=== PATIENT | male | born 1965 | race Caucasian/White ===

== ENCOUNTER 2021-10-01 17:57 | Inpatient (IN) | payer OTHER, SELFPAY ==
[~2021-10-01] VITALS: Ht 167.6 cm; Wt 85.7 kg
[2021-10-01 17:57] VITALS: BP_SYST 156
[2021-10-01] MEDS ORDERED: NACL 0.9% 1,000 ML IV ONE (19:45)
[2021-10-01 20:02] LABS: BASOPHILS # (AUTO) 0.1 K/uL (0.0-0.2); BASOPHILS % (AUTO) 0.9 % (0.0-2.0); EOSINOPHILS % (AUTO) 0.1 % (0.0-4.0); HEMATOCRIT 36.5 % (36-54); HEMOGLOBIN 12.8 g/dL (14.0-18.0); LYMPHOCYTES # (AUTO) 0.9 K/uL (1.0-5.5); LYMPHOCYTES % (AUTO) 13.9 % (20.5-51.5); MEAN CORPUSCULAR HEMOGLOBIN 33 pg (27-31); MEAN CORPUSCULAR HGB CONC 35 % (32-36); MEAN CORPUSCULAR VOLUME 94 fL (79.0-98.0); MONOCYTES # (AUTO) 0.9 K/uL (0.0-1.0); NEUTROPHILS # (AUTO) 4.7 K/uL (1.8-7.7); NEUTROPHILS % (AUTO) 72.1 % (40.0-70.0); PLATELET COUNT (AUTO) 194 K/uL (130-430); RED CELL DISTRIBUTION WIDTH 13.2 % (9.0-15.0); WHITE BLOOD COUNT (AUTO) 6.5 K/uL (4.8-10.8)
[2021-10-01 20:15] LABS: CALCIUM 8.3 mg/dL (8.4-11.0); CREATININE 0.85 mg/dL (0.55-1.30); POTASSIUM 4.7 mmol/L (3.5-5.1)
[2021-10-01 20:24] LABS: TOTAL BILIRUBIN 0.4 mg/dL (0.0-1.0)
[2021-10-01] MEDS ORDERED: ZOLPIDEM TARTRATE 5 MG TABLET PO PRN (22:00)
[2021-10-01] MEDS ORDERED: MORPHINE 2 MG/ML INJ. SYRINGE IVP PRN ×2 (22:00)
[2021-10-01] MEDS ORDERED: MUPIROCIN 2% TOPICAL OINTMENT 22 GM NS PRN (22:00)
[2021-10-01] MEDS ORDERED: POTASSIUM CHLORIDE 20 MEQ TAB.PRT.SR PO PRN (22:00)
[2021-10-01] MEDS ORDERED: ONDANSETRON HCL 4 MG/2 ML VIAL IVP PRN (22:00)
[2021-10-01] MEDS ORDERED: LORazepam 2 MG/ML VIAL IVP PRN (22:00)
[2021-10-01] MEDS ORDERED: ACETAMINOPHEN 325 MG TABLET PO PRN (22:00)
[2021-10-01] MEDS ORDERED: DEXTROSE 50% JECT 50 ML DISP.SYRIN IVP PRN (22:00)
[2021-10-01] MEDS ORDERED: MAGNESIUM SULFATE 50 ML IV PRN (22:00)
[2021-10-01] MEDS ORDERED: DOCUSATE SODIUM 100 MG CAPSULE PO PRN (22:00)
[2021-10-01] MEDS ORDERED: ROSU20TA2 PO (22:21)
[2021-10-01] MEDS ORDERED: FOLI0.8T2 PO (22:21)
[2021-10-01] MEDS ORDERED: NPH,100V2 SQ (22:21)
[2021-10-01] MEDS ORDERED: INSU100V (22:21)
[2021-10-01] MEDS ORDERED: FOLI-43 PO (22:21)
[2021-10-01] MEDS ORDERED: ATEN-167 PO (22:21)
[2021-10-01] MEDS ORDERED: EMPA25TA PO (22:21)
[2021-10-01] MEDS ORDERED: NEU300 PO (22:21)
[2021-10-01] MEDS ORDERED: LISI20TA PO (22:21)
[2021-10-01] MEDS ORDERED: MULT-1294 PO (22:21)
[2021-10-01] MEDS ORDERED: SODI1TAB3 PO (22:21)
[2021-10-01 23:24] LABS: BARBITURATE, URINE NEGATIVE (NEG <=200); BENZODIAZEPINE, URINE NEGATIVE (NEG <=150); CANNABINOID, URINE NEGATIVE (NEG <=50); COCAINE, URINE NEGATIVE (NEG <=150); METHAMPHETAMINES SCREEN,URINE NEGATIVE (NEG <=500); OPIATE, URINE NEGATIVE (NEG <=100); PHENCYCLIDINE SCREEN,URINE NEGATIVE (NEG <=25); UR TRICYCLIC ANTIDEPRESSANTS NEGATIVE (NEG <=300); URINE AMPHETAMINE NEGATIVE (NEG <=500); URINE METHADONE NEGATIVE (NEG <=200); URINE OXYCODONE SCREEN NEGATIVE (NEG <=100); URINE PROPOXYPHENE SCREEN NEGATIVE (NEG <=300)
[2021-10-01] MEDS ORDERED: chlordiazePOXIDE HCL 25 MG CAPSULE PO ONE ×2 (23:30)
[2021-10-01] MEDS ORDERED: FOLIC ACID 1 MG, THIAMINE HCL 100 MG, MAGNESIUM SULFATE 1 GM, MVI 10 ML in NACL 0.9% 1,... IV ONE (23:30)
[2021-10-01] MEDS ORDERED: LORazepam 2 MG/ML VIAL IVP ONE (23:30)
[2021-10-02] MEDS ORDERED: D5NS 1,000 ML IV SCH
[2021-10-02] MEDS ORDERED: FUROSEMIDE 40 MG/4 ML VIAL IVP ONE
[2021-10-02] MEDS ORDERED: FUROSEMIDE 40 MG/4 ML VIAL IVP SCH
[2021-10-02 02:55] VITALS: BP_SYST 140
[2021-10-02 04:13] LABS: BASOPHILS # (AUTO) 0.1 K/uL (0.0-0.2); BASOPHILS % (AUTO) 0.9 % (0.0-2.0); EOSINOPHILS % (AUTO) 0.1 % (0.0-4.0); HEMATOCRIT 37.4 % (36-54); HEMOGLOBIN 12.9 g/dL (14.0-18.0); LYMPHOCYTES # (AUTO) 1.4 K/uL (1.0-5.5); LYMPHOCYTES % (AUTO) 24.2 % (20.5-51.5); MEAN CORPUSCULAR HEMOGLOBIN 33 pg (27-31); MEAN CORPUSCULAR HGB CONC 34 % (32-36); MEAN CORPUSCULAR VOLUME 94 fL (79.0-98.0); MONOCYTES # (AUTO) 1.2 K/uL (0.0-1.0); MONOCYTES % (AUTO) 20.5 % (1.7-9.3); NEUTROPHILS # (AUTO) 3.1 K/uL (1.8-7.7); NEUTROPHILS % (AUTO) 54.3 % (40.0-70.0); PLATELET COUNT (AUTO) 192 K/uL (130-430); RED BLOOD CELL COUNT(AUTO) 3.96 MIL/uL (4.2-6.2); WHITE BLOOD COUNT (AUTO) 5.8 K/uL (4.8-10.8)
[2021-10-02 04:31] LABS: CALCIUM 7.9 mg/dL (8.4-11.0); CREATININE 0.84 mg/dL (0.55-1.30); POTASSIUM 4.1 mmol/L (3.5-5.1)
[2021-10-02] MEDS: NACL 0.9% 1,000 ML IV SCH ×2 (06:25→08:34)
[2021-10-02] MEDS: INSULIN LISPRO SLIDING SCALE 100 UNITS/ML VIAL (humaLOG) SUBCUT PRN ×4 (06:46→20:50)
[2021-10-02 08:15] VITALS: BP_SYST 131
[2021-10-02] MEDS: chlordiazePOXIDE HCL 25 MG CAPSULE PO SCH ×3 (08:32→20:46)
[2021-10-02] MEDS: METOPROLOL TARTRATE 25 MG TABLET PO SCH ×2 (08:32→20:47)
[2021-10-02] MEDS ORDERED: HEPARIN SODIUM,PORCINE 5,000 UNITS/ML VIAL SUBCUT SCH (09:00)
[2021-10-02] MEDS: SODIUM CHLORIDE 500 MG TABLET PO SCH ×2 (10:10→20:46)
[2021-10-02] MEDS: ENOXAPARIN SODIUM 40 MG/0.4 ML SYRINGE SUBCUT SCH (10:11)
[2021-10-02 12:01] VITALS: BP_SYST 128
[2021-10-02 16:15] VITALS: BP_SYST 135
[2021-10-02] MEDS: INSULIN NPH/REGULAR 70-30, 100 UNITS/ML, 10 ML VIAL SUBCUT SCH (16:39)
[2021-10-02 20:00] VITALS: BP_SYST 140
[2021-10-02] MEDS ORDERED: ATORVASTATIN 20 MG TABLET PO SCH (21:00)
[2021-10-03 00:31] VITALS: BP_SYST 159
[2021-10-03] MEDS: NACL 0.9% 1,000 ML IV SCH ×3 (00:35→18:40)
[2021-10-03] MEDS: INSULIN LISPRO SLIDING SCALE 100 UNITS/ML VIAL (humaLOG) SUBCUT PRN ×3 (06:49→21:55)
[2021-10-03] MEDS: INSULIN NPH/REGULAR 70-30, 100 UNITS/ML, 10 ML VIAL SUBCUT SCH ×2 (06:50→17:09)
[2021-10-03 08:00] VITALS: BP_SYST 133
[2021-10-03 08:25] LABS: BASOPHILS % (AUTO) 0.6 % (0.0-2.0); EOSINOPHILS % (AUTO) 0.3 % (0.0-4.0); HEMATOCRIT 37.6 % (36-54); HEMOGLOBIN 12.7 g/dL (14.0-18.0); LYMPHOCYTES # (AUTO) 1.3 K/uL (1.0-5.5); MEAN CORPUSCULAR HEMOGLOBIN 32 pg (27-31); MEAN CORPUSCULAR HGB CONC 34 % (32-36); MEAN CORPUSCULAR VOLUME 95 fL (79.0-98.0); MONOCYTES # (AUTO) 0.8 K/uL (0.0-1.0); MONOCYTES % (AUTO) 16.3 % (1.7-9.3); NEUTROPHILS # (AUTO) 2.6 K/uL (1.8-7.7); NEUTROPHILS % (AUTO) 55.8 % (40.0-70.0); PLATELET COUNT (AUTO) 194 K/uL (130-430); RED BLOOD CELL COUNT(AUTO) 3.95 MIL/uL (4.2-6.2); RED CELL DISTRIBUTION WIDTH 13.3 % (9.0-15.0); WHITE BLOOD COUNT (AUTO) 4.7 K/uL (4.8-10.8)
[2021-10-03 08:35] LABS: CALCIUM 7.8 mg/dL (8.4-11.0); CREATININE 0.73 mg/dL (0.55-1.30); POTASSIUM 3.6 mmol/L (3.5-5.1)
[2021-10-03] MEDS: SODIUM CHLORIDE 500 MG TABLET PO SCH ×3 (08:50→22:01)
[2021-10-03] MEDS: chlordiazePOXIDE HCL 25 MG CAPSULE PO SCH ×3 (08:51→22:01)
[2021-10-03] MEDS: FOLIC ACID 1 MG TABLET PO SCH (08:51)
[2021-10-03] MEDS: ENOXAPARIN SODIUM 40 MG/0.4 ML SYRINGE SUBCUT SCH (08:52)
[2021-10-03] MEDS ORDERED: EMPAGLIFLOZIN PO SCH (09:00)
[2021-10-03] MEDS: LISINOPRIL 10 MG TABLET (PRINIVIL) PO SCH (09:06)
[2021-10-03] MEDS: METOPROLOL TARTRATE 25 MG TABLET PO SCH ×2 (09:06→22:00)
[2021-10-03] MEDS ORDERED: SODIUM CHLORIDE 500 MG TABLET PO ONE (10:00)
[2021-10-03 12:00] VITALS: BP_SYST 129
[2021-10-03 16:00] VITALS: BP_SYST 132
[2021-10-04 00:49] VITALS: BP_SYST 162
[2021-10-04] MEDS: INSULIN LISPRO SLIDING SCALE 100 UNITS/ML VIAL (humaLOG) SUBCUT PRN ×3 (07:07→18:22)
[2021-10-04] MEDS: NACL 0.9% 1,000 ML IV SCH ×2 (07:08→17:57)
[2021-10-04] MEDS: INSULIN NPH/REGULAR 70-30, 100 UNITS/ML, 10 ML VIAL SUBCUT SCH ×2 (07:12→17:54)
[2021-10-04 08:00] VITALS: BP_SYST 146
[2021-10-04] MEDS ORDERED: LIB25 PO (08:01)
[2021-10-04] MEDS ORDERED: ASPI-1393 PO (08:01)
[2021-10-04] MEDS: SODIUM CHLORIDE 500 MG TABLET PO SCH ×3 (08:34→21:12)
[2021-10-04] MEDS: FOLIC ACID 1 MG TABLET PO SCH (08:34)
[2021-10-04] MEDS: chlordiazePOXIDE HCL 25 MG CAPSULE PO SCH ×3 (08:35→21:12)
[2021-10-04] MEDS: ENOXAPARIN SODIUM 40 MG/0.4 ML SYRINGE SUBCUT SCH (08:35)
[2021-10-04] MEDS: LISINOPRIL 10 MG TABLET (PRINIVIL) PO SCH (08:48)
[2021-10-04] MEDS: METOPROLOL TARTRATE 25 MG TABLET PO SCH ×2 (08:48→21:12)
[2021-10-04 09:38] LABS: BASOPHILS % (AUTO) 0.5 % (0.0-2.0); EOSINOPHILS % (AUTO) 0.3 % (0.0-4.0); HEMOGLOBIN 13.2 g/dL (14.0-18.0); LYMPHOCYTES # (AUTO) 1.4 K/uL (1.0-5.5); LYMPHOCYTES % (AUTO) 25.5 % (20.5-51.5); MEAN CORPUSCULAR HEMOGLOBIN 32 pg (27-31); MEAN CORPUSCULAR HGB CONC 34 % (32-36); MEAN CORPUSCULAR VOLUME 95 fL (79.0-98.0); MONOCYTES # (AUTO) 0.7 K/uL (0.0-1.0); MONOCYTES % (AUTO) 13.4 % (1.7-9.3); NEUTROPHILS # (AUTO) 3.3 K/uL (1.8-7.7); NEUTROPHILS % (AUTO) 60.3 % (40.0-70.0); PLATELET COUNT (AUTO) 208 K/uL (130-430); RED CELL DISTRIBUTION WIDTH 13.4 % (9.0-15.0); WHITE BLOOD COUNT (AUTO) 5.5 K/uL (4.8-10.8)
[2021-10-04 09:41] LABS: CALCIUM 7.9 mg/dL (8.4-11.0); CREATININE 0.89 mg/dL (0.55-1.30); POTASSIUM 3.3 mmol/L (3.5-5.1)
[2021-10-04] MEDS ORDERED: POTASSIUM CHLORIDE 20 MEQ TAB.PRT.SR PO ONE (11:30)
[2021-10-04 12:00] VITALS: BP_SYST 150
[2021-10-04 16:00] VITALS: BP_SYST 147
[2021-10-04 22:59] VITALS: BP_SYST 146
[2021-10-04 23:00] VITALS: BP_SYST 146
[2021-10-05 03:46] VITALS: BP_SYST 146
[2021-10-05 08:44] VITALS: BP_SYST 163
[2021-10-05] MEDS: ENOXAPARIN SODIUM 40 MG/0.4 ML SYRINGE SUBCUT SCH (09:00)
[2021-10-05] MEDS: FOLIC ACID 1 MG TABLET PO SCH (09:00)
[2021-10-05] MEDS: NACL 0.9% 1,000 ML IV SCH ×3 (09:17→23:25)
[2021-10-05] MEDS: LISINOPRIL 10 MG TABLET (PRINIVIL) PO SCH (09:18)
[2021-10-05] MEDS: SODIUM CHLORIDE 500 MG TABLET PO SCH ×3 (09:18→23:24)
[2021-10-05] MEDS: chlordiazePOXIDE HCL 25 MG CAPSULE PO SCH ×3 (09:19→23:24)
[2021-10-05] MEDS: METOPROLOL TARTRATE 25 MG TABLET PO SCH ×2 (09:19→23:39)
[2021-10-05 11:52] VITALS: BP_SYST 154
[2021-10-05 15:43] VITALS: BP_SYST 164
[2021-10-05] MEDS: cloNIDine HCL 0.2 MG TABLET PO PRN (16:51)
[2021-10-05] MEDS: INSULIN NPH/REGULAR 70-30, 100 UNITS/ML, 10 ML VIAL SUBCUT SCH (17:00)
[2021-10-05 22:00] VITALS: BP_SYST 159
[2021-10-06] VITALS (10 sets, daily range): BP systolic 124–175
[2021-10-06] MEDS: INSULIN LISPRO SLIDING SCALE 100 UNITS/ML VIAL (humaLOG) SUBCUT PRN ×3 (00:05→17:41)
[2021-10-06] MEDS: INSULIN NPH/REGULAR 70-30, 100 UNITS/ML, 10 ML VIAL SUBCUT SCH ×2 (06:44→17:42)
[2021-10-06 08:43] LABS: BASOPHILS # (AUTO) 0.1 K/uL (0.0-0.2); EOSINOPHILS # (AUTO) 0.2 K/uL (0.0-0.4); EOSINOPHILS % (AUTO) 2.4 % (0.0-4.0); HEMATOCRIT 36.9 % (36-54); HEMOGLOBIN 12.5 g/dL (14.0-18.0); LYMPHOCYTES # (AUTO) 1.5 K/uL (1.0-5.5); MEAN CORPUSCULAR HEMOGLOBIN 32 pg (27-31); MEAN CORPUSCULAR HGB CONC 34 % (32-36); MEAN CORPUSCULAR VOLUME 94 fL (79.0-98.0); MONOCYTES # (AUTO) 0.8 K/uL (0.0-1.0); MONOCYTES % (AUTO) 11.5 % (1.7-9.3); NEUTROPHILS # (AUTO) 4.3 K/uL (1.8-7.7); NEUTROPHILS % (AUTO) 63.1 % (40.0-70.0); PLATELET COUNT (AUTO) 200 K/uL (130-430); RED BLOOD CELL COUNT(AUTO) 3.92 MIL/uL (4.2-6.2); RED CELL DISTRIBUTION WIDTH 13.3 % (9.0-15.0); WHITE BLOOD COUNT (AUTO) 6.7 K/uL (4.8-10.8)
[2021-10-06 09:25] LABS: CALCIUM 8.7 mg/dL (8.4-11.0); CREATININE 0.83 mg/dL (0.55-1.30); POTASSIUM 3.6 mmol/L (3.5-5.1)
[2021-10-06] MEDS ORDERED: INSULIN NPH/REGULAR 70-30, 100 UNITS/ML, 10 ML VIAL SUBCUT ONE (10:00)
[2021-10-06 10:22] LABS: PROTHROMBIN TIME 10.8 SECS (9.5-12.5)
[2021-10-06] MEDS: FOLIC ACID 1 MG TABLET PO SCH (11:07)
[2021-10-06] MEDS: SODIUM CHLORIDE 500 MG TABLET PO SCH ×3 (11:07→21:47)
[2021-10-06] MEDS: chlordiazePOXIDE HCL 25 MG CAPSULE PO SCH ×3 (11:08→21:49)
[2021-10-06] MEDS: METOPROLOL TARTRATE 25 MG TABLET PO SCH ×2 (11:08→21:49)
[2021-10-06] MEDS: LISINOPRIL 10 MG TABLET (PRINIVIL) PO SCH (11:29)
[2021-10-06] MEDS: ENOXAPARIN SODIUM 40 MG/0.4 ML SYRINGE SUBCUT SCH (11:30)
[2021-10-06] MEDS: VANCOMYCIN HCL 1,500 MG in NS 250 ML IV SCH (12:00)
[2021-10-06] MEDS ORDERED: GLYCOPYRROLATE 0.2 MG/ML VIAL IJ ONE (12:13)
[2021-10-06] MEDS ORDERED: SEVOFLURANE 15 MIN GAS INH ONE (12:13)
[2021-10-06] MEDS ORDERED: PROPOFOL 200MG/ 20ML VIAL (DIPRIVAN) IV ONE (12:13)
[2021-10-06] MEDS ORDERED: ePHEDrine sulfate 50 MG/ML VIAL IVP ONE (12:13)
[2021-10-06] MEDS ORDERED: METOCLOPRAMIDE HCL 10 MG/2 ML VIAL IVP ONE (12:13)
[2021-10-06] MEDS ORDERED: NS IRRIG SOLN 1000 ML IR ONE (12:13)
[2021-10-06] MEDS ORDERED: CEFAZOLIN 2 GM IVPB PREMIX 50 ML IV ONE (12:13)
[2021-10-06] MEDS ORDERED: fentaNYL CITRATE 250 MCG/5 ML AMP IV ONE (12:13)
[2021-10-06] MEDS ORDERED: ONDANSETRON HCL 4 MG/2 ML VIAL IVP ONE (12:13)
[2021-10-06] MEDS ORDERED: LIDOCAINE 1% 10 MG/ML, 20 ML MDV INJ ONE (12:13)
[2021-10-06] MEDS ORDERED: NS 1000 ML IV.SOLN IV ONE (12:13)
[2021-10-06] MEDS ORDERED: KETOROLAC TROMETHAMINE 30 MG VIAL IVP ONE (12:13)
[2021-10-06] MEDS ORDERED: MIDAZOLAM HCL 5 MG/5 ML VIAL IVP ONE (12:13)
[2021-10-06] MEDS ORDERED: HYDROmorphone 2 MG/ML VIAL IVP PRN (13:00)
[2021-10-06] MEDS ORDERED: HYDROmorphone 1 MG/ML INJ. CARTRIDGE IVP PRN (13:00)
[2021-10-06] MEDS ORDERED: NACL 0.9% 1,000 ML IV SCH (13:00)
[2021-10-06] MEDS ORDERED: KETOROLAC TROMETHAMINE 30 MG VIAL IVP PRN (13:00)
[2021-10-06] MEDS ORDERED: ONDANSETRON HCL 4 MG/2 ML VIAL IVP PRN ×2 (13:00→14:00)
[2021-10-06] MEDS ORDERED: HYDROcodone/ACETAMIN 5-325 MG TAB (NORCO/ VICODIN) PO PRN ×2 (14:00)
[2021-10-06] MEDS ORDERED: CEFAZOLIN 1 GM IVPB PREMIX 50 ML IV SCH (14:00)
[2021-10-06] MEDS ORDERED: ACETAMINOPHEN 325 MG TABLET PO PRN (14:00)
[2021-10-06] MEDS ORDERED: CEFAZOLIN SOD 1 GM in D5W 50 ML IV ONE (14:30)
[2021-10-06] MEDS: cloNIDine HCL 0.2 MG TABLET PO PRN (15:33)
[2021-10-06] MEDS: CEFAZOLIN SOD 1 GM in D5W 50 ML IV SCH (21:49)
[2021-10-07 00:45] VITALS: BP_SYST 140
[2021-10-07] MEDS: VANCOMYCIN HCL 1,500 MG in NS 250 ML IV SCH ×3 (01:09→23:48)
[2021-10-07 04:00] VITALS: BP_SYST 121
[2021-10-07] MEDS: CEFAZOLIN SOD 1 GM in D5W 50 ML IV SCH ×3 (05:32→21:42)
[2021-10-07] MEDS: INSULIN LISPRO SLIDING SCALE 100 UNITS/ML VIAL (humaLOG) SUBCUT PRN ×4 (06:21→21:40)
[2021-10-07] MEDS: INSULIN NPH/REGULAR 70-30, 100 UNITS/ML, 10 ML VIAL SUBCUT SCH ×2 (06:41→17:46)
[2021-10-07 07:42] LABS: EOSINOPHILS # (AUTO) 0.2 K/uL (0.0-0.4); EOSINOPHILS % (AUTO) 2.4 % (0.0-4.0); HEMATOCRIT 38.7 % (36-54); HEMOGLOBIN 13.3 g/dL (14.0-18.0); LYMPHOCYTES # (AUTO) 1.5 K/uL (1.0-5.5); LYMPHOCYTES % (AUTO) 20.6 % (20.5-51.5); MEAN CORPUSCULAR HEMOGLOBIN 32 pg (27-31); MEAN CORPUSCULAR HGB CONC 34 % (32-36); MEAN CORPUSCULAR VOLUME 94 fL (79.0-98.0); MONOCYTES # (AUTO) 0.9 K/uL (0.0-1.0); MONOCYTES % (AUTO) 12.7 % (1.7-9.3); PLATELET COUNT (AUTO) 252 K/uL (130-430); RED BLOOD CELL COUNT(AUTO) 4.13 MIL/uL (4.2-6.2); RED CELL DISTRIBUTION WIDTH 13.4 % (9.0-15.0); WHITE BLOOD COUNT (AUTO) 7.1 K/uL (4.8-10.8)
[2021-10-07] MEDS: LISINOPRIL 10 MG TABLET (PRINIVIL) PO SCH (08:03)
[2021-10-07] MEDS: FOLIC ACID 1 MG TABLET PO SCH (08:03)
[2021-10-07] MEDS: SODIUM CHLORIDE 500 MG TABLET PO SCH ×3 (08:03→21:34)
[2021-10-07] MEDS: METOPROLOL TARTRATE 25 MG TABLET PO SCH ×2 (08:03→21:34)
[2021-10-07] MEDS: chlordiazePOXIDE HCL 25 MG CAPSULE PO SCH ×3 (08:04→21:34)
[2021-10-07 08:09] LABS: ALBUMIN 2.5 g/dL (3.4-4.8); CREATININE 1.26 mg/dL (0.55-1.30); POTASSIUM 3.6 mmol/L (3.5-5.1); TOTAL BILIRUBIN 0.8 mg/dL (0.0-1.0)
[2021-10-07] MEDS: ENOXAPARIN SODIUM 40 MG/0.4 ML SYRINGE SUBCUT SCH (08:09)
[2021-10-07 08:15] VITALS: BP_SYST 149
[2021-10-07 09:00] LABS: BASOPHILS % (AUTO) 0.9 % (0.0-2.0); NEUTROPHILS # (AUTO) 4.5 K/uL (1.8-7.7); NEUTROPHILS % (AUTO) 63.4 % (40.0-70.0)
[2021-10-07 11:41] VITALS: BP_SYST 117
[2021-10-07 17:09] VITALS: BP_SYST 159
[2021-10-07 22:16] VITALS: BP_SYST 152
[2021-10-08 00:08] VITALS: BP_SYST 135
[2021-10-08] MEDS: CEFAZOLIN SOD 1 GM in D5W 50 ML IV SCH ×2 (05:29→14:22)
[2021-10-08] MEDS: INSULIN LISPRO SLIDING SCALE 100 UNITS/ML VIAL (humaLOG) SUBCUT PRN ×2 (05:30→12:18)
[2021-10-08] MEDS: INSULIN NPH/REGULAR 70-30, 100 UNITS/ML, 10 ML VIAL SUBCUT SCH (05:31)
[2021-10-08 08:15] VITALS: BP_SYST 144
[2021-10-08] MEDS: FOLIC ACID 1 MG TABLET PO SCH (08:16)
[2021-10-08] MEDS: SODIUM CHLORIDE 500 MG TABLET PO SCH ×2 (08:16→14:22)
[2021-10-08] MEDS: METOPROLOL TARTRATE 25 MG TABLET PO SCH (08:18)
[2021-10-08] MEDS: chlordiazePOXIDE HCL 25 MG CAPSULE PO SCH ×2 (08:19→14:22)
[2021-10-08] MEDS: LISINOPRIL 10 MG TABLET (PRINIVIL) PO SCH (08:19)
[2021-10-08] MEDS ORDERED: DOXY100T2 PO (08:29)
[2021-10-08] MEDS ORDERED: AMOX-426 PO (08:29)
[2021-10-08] MEDS: ENOXAPARIN SODIUM 40 MG/0.4 ML SYRINGE SUBCUT SCH (09:54)
[2021-10-08 10:23] LABS: ALBUMIN 2.3 g/dL (3.4-4.8); CALCIUM 8.1 mg/dL (8.4-11.0); CREATININE 1.39 mg/dL (0.55-1.30); POTASSIUM 3.6 mmol/L (3.5-5.1); TOTAL BILIRUBIN 0.6 mg/dL (0.0-1.0)
[2021-10-08 12:18] VITALS: BP_SYST 173
[2021-10-08] MEDS: VANCOMYCIN HCL 1,500 MG in NS 250 ML IV SCH (12:18)
[2021-10-08 16:12] VITALS: BP_SYST 144
[2021-10-09] MEDS ORDERED: VANCOMYCIN HCL 1,000 MG in NS 250 ML IV SCH ×2
== END 2021-10-08 18:50 | disposition home health service (06) | DRG 255 ==
LOC: SED 17:57 → EDBD 22:09 → STU 22:09
PROVIDERS: ADMIT General Practice; ATTEND General Practice
PROC: 4A10X4Z Monitoring of Central Nervous Electrical Activity, External Approach (ICD-10-PCS; 2021-10-05)
PROC: 0Y6S0Z0 Detachment at Left 2nd Toe, Complete, Open Approach (ICD-10-PCS; principal; 2021-10-06 12:36)
DX: E10.52 Type 1 diabetes mellitus with diabetic peripheral angiopathy with gangrene (principal); U07.1 COVID-19; E87.1 Hypo-osmolality and hyponatremia; I96 Gangrene, not elsewhere classified; F10.139 Alcohol abuse with withdrawal, unspecified; N17.9 Acute kidney failure, unspecified; F17.200 Nicotine dependence, unspecified, uncomplicated; R09.02 Hypoxemia; F41.9 Anxiety disorder, unspecified; G90.8 Other disorders of autonomic nervous system; Y90.9 Presence of alcohol in blood, level not specified; I10 Essential (primary) hypertension; R56.9 Unspecified convulsions; E10.42 Type 1 diabetes mellitus with diabetic polyneuropathy
CPT/HCPCS: 36415; 70450-TC; 71045; 73720; 76376; 80048; 80053; 80202; 80307; 82948; 82962; 83735; 84484; 85025; 85610-TC; 85730-TC; 88305; 88311; 93005; 93923; 95816; 96360; 97116-GP; 97163-GP; 99285; G0378; G0482; J0690; J1650; J1815; J1885; J2001; J2060; J2250; J2405; J2704; J2765; J3010; J3370; J3411; J3475; J3490; J7030; J7050; J7060; U0003